=== PATIENT | female | born 1990 | race Caucasian/White ===

== ENCOUNTER 2016-11-08 23:57 | Emergency (ER) | payer OTHER | END 2016-11-09 03:10 | disposition home or self-care (01) | LOC: ER 23:57 | DX: G44.209 Tension-type headache, unspecified, not intractable (principal); R11.2 Nausea with vomiting, unspecified; F19.10 Other psychoactive substance abuse, uncomplicated; F17.200 Nicotine dependence, unspecified, uncomplicated; Z88.6 Allergy status to analgesic agent | CPT/HCPCS: 36415; 80307; 96374; 96375; J1200; J1885; J2765 ==